=== PATIENT | male | born 1955 | race Caucasian/White ===

== ENCOUNTER 2021-06-21 07:25 | Outpatient (CLI) | payer MEDICARE, MEDICAID, SELFPAY ==
--- NOTE | ~2021-06-21 | CT_ITS ---
EXAMINATION:CT diagnostic chest wo con DATE: 06/21/2021 09:20 INDICATION: Other nonspecific abnormal finding in lung field. Multiple pulmonary nodules. TECHNIQUE: Computed tomography (CT) of the chest was performed without intravenous contrast. Automate d exposure control and iterative reconstruction technique were employed. The dose-length product (DLP ) was 124.99 mGy-cm. COMPARISON: None. FINDINGS: There is severe emphysema. There are centrilobular nodules, tree-in-bud opacities, and airs pace and groundglass opacities in right lower lobe, consistent with pneumonia. There are a few scatte red 2 mm nodules in the lungs, likely benign. There is mild atelectasis and scarring in the lungs. No pleural effusion. The heart size is normal. There are coronary artery calcifications. No pericardial effusion. There is bilateral gynecomastia. There is a small sliding hiatal hernia. There is mild chr onic height loss of multiple vertebral bodies. There is a burst fracture of T10 inferior endplate wit h 2/5 loss of height and retropulsion of bone 2 mm into central spinal canal, likely subacute or title supervisor tabitha. There is an old healed fracture of the sternum. IMPRESSION: 1. Right lower lobe pneumonia. 2. Severe emphysema. 3. Small sliding hiatal hernia. Reviewed, dictated and finalized at location A.
--- NOTE | 2021-06-24 16:01 | WPDPFTINT ---
PFT Procedure Performed PFT Procedure Performed Spirometry with Pre/Post Bronchodilator Flow Vol Loop PFT Interpretation This is a pulmonary function test with pre and post-bronchodilator spirometry. The test was performed and results interpreted in accordance with the 2019 and 2005 ATS/ERS Task Force guidelines respectively using the Global Lung Function Initiative-2012 reference equations. Patient demonstrated good effort and cooperation. Reproducibility criteria were met. The quality of the pre bronchodilator spirometry maneuver was Grade A and post bronchodilator spirometry maneuver was Grade A. the patient was unable to complete plethysmography or DLCO Findings: Spirometry: There is decreased maximal expiratory airflow at all lung volumes with a concaved expiratory flow tracing. The contour the inspiratory flow tracing is normal. The pre bronchodilator FVC is 3.08 L, 103% predicted. The pre bronchodilator FEV1 is 1.42 L, 61% predicted. The pre bronchodilator FEV1: FVC ratio is 46%. The post bronchodilator FVC is 3.41 L, representing an 11% increase. The post bronchodilator FEV1 is 1.52 L, representing a 7% increase. The post bronchodilator FEV1: FVC ratio is 45%. Impression: There is a moderate obstructive abnormality without significant improvement after inhaling a single dose of albuterol. A concurrent restrictive ventilatory abnormality cannot be excluded as lung volumes were not measured. There are no prior studies for comparison
== END 2021-06-21 07:26 | disposition home or self-care (01) ==
PROVIDERS: PCP Family Medicine; Visit Provider Internal Medicine Pulmonary Disease
DX: R91.8 Other nonspecific abnormal finding of lung field (principal); R94.2 Abnormal results of pulmonary function studies; J43.9 Emphysema, unspecified; K44.9 Diaphragmatic hernia without obstruction or gangrene; J18.9 Pneumonia, unspecified organism
CPT/HCPCS: 71250; 94060